=== PATIENT | male | born 1940 | race Caucasian/White ===

== ENCOUNTER 2019-03-20 19:31 | Emergency (ER) | payer MEDICARE, OTHER ==
[~2019-03-20] VITALS: Ht 172.7 cm; Wt 86.2 kg
[~2019-03-20 19:31] MED LIST: ALLO100 PO; AMIT25; ATEN50 PO; ATOR40TA; BUPR100ER PO; CALGLU500; CITA20 PO; CLON.5; CLON.5 PO; CLOP75 PO; DIAZ5 PO; DIGO.125 PO; FLUO20 PO; GABA300 PO; GABA400 PO; HYDACE5 PO; IBUP800 PO; LEVSOD25 PO; LEVSOD75 PO; METO25 PO; MISO100 PO; MULVITMIND PO; NIAC500 PO; OMEP20ER; OMEP20ER PO; PRAV20 PO; PYRI50; RISE35; SIMV40 PO; SUCR1 PO; TAMS.4ER PO; TESTOSTERONE PUMP; TRIHYD253A PO; VALS80; WARF2.5 PO; WARF5 PO; [UNRECOGNIZED DRUG - OTHER]
[2019-03-20 21:34] LABS: BASOPHILS ABSOLUTE AUTO 0.05 K/mm3 (0.00-0.23); BASOPHILS PERCENT AUTO 1 % (0-2); EOSINOPHILS ABSOLUTE AUTO 0.19 K/mm3 (0.00-0.68); EOSINOPHILS PERCENT AUTO 3 % (0-6); Hematocrit 40.6 % (37.0-53.0); IMMATURE GRAN PERCENT AUTO 0 % (0-1); LYMPHOCYTES ABSOLUTE AUTO 2.59 K/mm3 (0.84-5.20); LYMPHOCYTES PERCENT AUTO 41 % (21-46); MONOCYTES ABSOLUTE AUTO 0.75 K/mm3 (0.16-1.47); MONOCYTES PERCENT AUTO 12 % (4-13); Mean Corpuscular HGB 35.9 pg (26.0-34.0); Mean Corpuscular HGB Conc 34.5 g/dL (31.5-36.5); Mean Corpuscular Volume 104 fL (80-100); Mean Platelet Volume 9.9 fL (9.1-12.4); NEUTROPHILS ABSOLUTE AUTO 2.82 K/mm3 (1.96-9.15); NEUTROPHILS PERCENT AUTO 44 % (41-73); Platelet Count 140 K/mm3 (150-400); RDW Coefficient Variation 14.1 % (11.7-14.2); RDW Standard Deviation 54.1 fL (35.1-46.3)
[2019-03-20 21:48] LABS: International Normalized Ratio 3.91; Prothrombin Time Results 36.6 Sec (9.7-11.5)
[2019-03-20 21:53] LABS: Albumin, Blood 3.6 g/dL (3.4-5.0); Albumin/Globulin Ratio 0.9 (0.8-1.8); Bilirubin, Total 0.6 mg/dL (0.1-1.0); Calcium, Blood 8.4 mg/dL (8.5-10.1); Creatinine, Blood 1.33 mg/dL (0.60-1.20); Total Protein, Blood 7.6 g/dL (6.4-8.2)
== END 2019-03-20 22:20 | disposition home or self-care (01) ==
LOC: ER 19:31
PROVIDERS: Physician Assistant
DX: S01.512A Laceration without foreign body of oral cavity, initial encounter (principal); X58.XXXA Exposure to other specified factors, initial encounter; D68.9 Coagulation defect, unspecified; Z88.8 Allergy status to other drugs, medicaments and biological substances; Z79.899 Other long term (current) drug therapy; Z79.01 Long term (current) use of anticoagulants; I48.91 Unspecified atrial fibrillation; I10 Essential (primary) hypertension; E78.00 Pure hypercholesterolemia, unspecified; I25.2 Old myocardial infarction
CPT/HCPCS: 36415; 41250; 80053; 85025; 85610; 90471; 90714; 99283-25